=== PATIENT | female | born 1975 | race American Indian/Alaskan Native ===

== ENCOUNTER 2019-10-10 08:24 | Day surgery (SDC) | payer OTHER ==
[~2019-10-10 08:24] MED LIST: ceFAZolin/Water 2 GM/20 ML 2 GM/20 ML SYRINGE IV NR
[2019-10-10] MEDS ORDERED: LACTATED RINGERS 1,000 ML ONE ×2 (09:55→15:49)
[2019-10-10] MEDS ORDERED: SODIUM CHLORIDE 0.9% 1000 ML 1,000 ML, EPINEPHrine/PF 1 mg/1 mL 1 MG, LIDOCAINE 1% 20 m... IJ NR (10:00)
--- NOTE | 2019-10-10 10:03 | Anesthesia Day of Surgery ---
Anesthesia Day of Surgery - Day of Surgery Patient Examined: Yes Patient H&P Reviewed: Yes Patient is NPO: Yes
[2019-10-10] MEDS ORDERED: MAGNESIUM OXIDE 400 MG TAB PO ONE (10:04)
[2019-10-10] MEDS ORDERED: ACETAMINOPHEN 500 MG TAB PO ONE (10:04)
[2019-10-10] MEDS ORDERED: ONDANSETRON 4 MG/2 ML INJ IV PRN (10:04)
[2019-10-10] MEDS ORDERED: HYDROmorphone 1 MG/1 ML INJ IV PRN (10:04)
--- NOTE | 2019-10-10 10:06 | Anesthesia Consultation ---
Anesthesia Consult and Med Hx Date of service: 10/10/19 - Airway Anesthetic Teeth Evaluation: Good ROM Head & Neck: Adequate Mental/Hyoid Distance: Adequate Mallampati Class: Class I Intubation Access Assessment: Good - Pre-Operative Health Status ASA Pre-Surgery Classification: ASA2 Proposed Anesthetic Plan: General - Pulmonary Hx Smoking: No Hx Sleep Apnea: No - Central Nervous System Hx Psychiatric Problems: Yes (Anxiety) - Gastrointestinal Hx Gastroesophageal Reflux Disease: Yes - Hematic Hx Anemia: Yes - Other Systems Hx Alcohol Use: Yes (WINE) Hx Substance Use: Yes (MARIJUANA 3 WKS AGO) Hx Cancer: No
[2019-10-10] MEDS ORDERED: LIDOCAINE 1%/EPINEPHRINE 1:100,000 VIAL (20 ML) INFILTRATI ONE ×2 (10:25→13:03)
[2019-10-10] MEDS ORDERED: MIDAZOLAM 2 MG/2 ML INJ IV NR (11:00)
[2019-10-10] MEDS ORDERED: GABAPENTIN 300 MG CAP PO NR (11:00)
[2019-10-10] MEDS ORDERED: LACTATED RINGERS 1,000 ML IV SCH (11:00)
[2019-10-10] MEDS ORDERED: HYDROmorphone 1 MG/1 ML INJ ONE (11:19)
[2019-10-10] MEDS ORDERED: propofoL 200 MG/20 ML VIAL IV ONE (11:20)
[2019-10-10] MEDS ORDERED: LIDOCAINE PF 100 MG/5 ML (CARDIAC SYRINGE) IV ONE (11:20)
[2019-10-10] MEDS ORDERED: MIDAZOLAM 2 MG/2 ML INJ ONE (11:21)
[2019-10-10] MEDS ORDERED: ROCURONIUM 50 MG/5 ML INJ IV ONE (11:21)
[2019-10-10] MEDS ORDERED: KETAMINE/STERILE WATER 50 MG/ML SYRINGE ONE (11:21)
[2019-10-10] MEDS ORDERED: dexAMETHasone 20 MG/5 ML VIAL ONE (11:22)
[2019-10-10] MEDS ORDERED: ONDANSETRON 4 MG/2 ML INJ ONE (11:22)
[2019-10-10] MEDS ORDERED: SUCCINYLCHOLINE CHLORIDE 200 MG/10 ML INJ MDV ONE (11:47)
[2019-10-10] MEDS ORDERED: SODIUM CHLORIDE 0.9% 1000 ML 1,000 ML, EPINEPHrine/PF 1 mg/1 mL 1 MG, LIDOCAINE 1% 20 m... IJ SCH (13:00)
[2019-10-10] MEDS ORDERED: SODIUM CHLORIDE 0.9% IRR 1,500 ML BOTTLE IR ONE (13:04)
[2019-10-10] MEDS ORDERED: ceFAZolin 1 GM VIAL ONE ×2 (17:34)
[2019-10-10] MEDS ORDERED: NEOSTIGMINE 10MG/10 ML INJ MDV ONE (18:14)
--- NOTE | 2019-10-10 18:44 | Operative Report ---
Operative Report Operative Report: Plastic Surgery Operative Note Preoperative Diagnosis: Unacceptable cosmetic appearance Postopertive Diagnosis: Same Procedure: Partial lipoabdominoplasty; Liposuction of the upper and lower abdomen, bra rolls, axilla and posterior waist with [place] butt lift fat grafting to the butt and hips Surgeon: Dr. Pratibha Coulter Talent Management Specialist: None Anesthesia: General endotracheal EBL: 100cc Indications: This patient is a 44 year old AAF who presented with complaint of lost buttock fullness and volume as well as excess skin and fat of the abdomend despite a regular diet and exercise regimen. She has also had loose skin of the lower abdomen. She desires a tummy tuck to achieve a flat abdomen, and also to use the fat for grafting to her buttocks and hips. We discussed the benefits and risks of surgery including infection, hematoma, seroma, scarring, fat necrosis, fat embolus, fat resorption, contour irregularity, skin necrosis, umbilical necrosis, asymmetry and the need for further surgery. Patient understands and accepts these risks and desires to proceed with surgery. Procedure: After marking in preoperative holding the patient was brought into the operating room and placed supine on the OR table. After induction of adequate general endotracheal anesthesia, the patient's trunk was prepped and draped in the usual sterile surgical fashion. To begin, markings were refreshed and 1% lidocaine with epinephrine was injected into the liposuction cannula entry points. Using an 11 blade, cannula entry incisions were made in the lower abdomen, and 2 L of tumescent solution was infiltrated into the tissues of the abdomen and flanks. Power assisted liposcution was performed until aspirate was blood-tinged. We then began the tummy tuck portion of the procedure, creating a lower abdominal incision using a 10 blade, which was carried through subcutaneous tissue using the electrocautery. This dissection along the rectus fascia was carried cephalad and the superior margin of skin that was marked was sharply excised. A 19 Fr Song drain was placed and secured with a 2-0 Nylon suture and we began closure of her incisions in 3 layers beginning with a PDO Quill suture to approximate Brice's fascia follwed by 3-0 Monoderm Quill in 2 layers. Liposuction incisions were closed with 4-0 Monocryl. All incisions were then sealed with Dermabond except at the pubis, which was left unsealed for drainage. The patient was then placed in the prone position and once again cannula entry sites of the posterior waist and buttocks were injected with local anesthesia and opened with an 11 blade. 2 L of tumescent solution was infiltrated into the subcutaneous tissue of the posterior waist, upper and lower back, and power assisted liposuction used to remove excess fat. Once satisfied with the contour we began the fat grafting portion of the procedure. Using blunt cannulas, fat was injected into the subcutaneous tissue of the buttocks and hips bilaterally until a desireable contour was achieved. A total of 1500cc of pure fat was injected into each side. Once fat grafting was complete, 4-0 Monocryl was used to close all cannula entry points. All areas where incisions were placed were then dressed with abdominal pads and the patient was then awakened from general anesthesia and an abdominal binder was placed. She was then transferred to PACU in stable condition. There were no complications. All sponge, needle and instrument counts were correct at the end of the case.
[2019-10-10] MEDS ORDERED: MEPERIDINE 25 MG/1 ML INJ ONE (18:57)
[2019-10-10] MEDS ORDERED: MEPERIDINE 25 MG/1 ML INJ IV PRN (19:03)
--- NOTE | 2019-10-10 19:05 | Post Anesthesia Evaluation ---
- Post Anesthesia Evaluation Patient Participated: Yes Airway Patent: Yes Stable Respiratory Function: Yes Nausea/Vomiting: No Temp > 96.8F: Yes Pain Manageable: Yes Adequeate Hydration: Yes Anesthesia Complications: No Block Receding Appropriately: Not Applicable Patient on Ventilator: No
[2019-10-10 20:00] VITALS: BP 122/80
== END 2019-10-10 20:13 | disposition home or self-care (01) ==
LOC: OR 08:24
PROVIDERS: ATTEND Plastic Surgery
DX: Z41.1 Encounter for cosmetic surgery (principal); K21.9 Gastro-esophageal reflux disease without esophagitis; F41.9 Anxiety disorder, unspecified; Z72.89 Other problems related to lifestyle; D64.9 Anemia, unspecified; Z98.890 Other specified postprocedural states; Z88.2 Allergy status to sulfonamides; Z79.899 Other long term (current) drug therapy; Z87.440 Personal history of urinary (tract) infections; Z88.8 Allergy status to other drugs, medicaments and biological substances
CPT/HCPCS: 15771; 15772; 17999; 81025; J0171; J0330; J0690; J1100; J1170; J2001; J2175; J2250; J2405; J2704; J2710; J7030; J7120